=== PATIENT | male | born 1950 | race Caucasian/White ===

== ENCOUNTER 2025-06-03 17:29 | Emergency (ER) | payer MEDICARE, SELFPAY ==
[2025-06-03] VITALS (57 sets, daily range): BP systolic 86–129; BP diastolic 31–65; PULSE 52–68; RESP 16; TEMP 36.3; O2SAT 70–99; BMI 42.1
--- NOTE | 2025-06-03 17:35 | ECG_ITS ---
[facility] Test Date: 2025-06-03 Pat Name: LOLLY KNIGHT Department: Room: - Gender: Male Caul Fat Puller: : 1950 Requested By: [id number] Order Number: [id number] Reading MD: BG ADKINS M.D. Measurements Intervals [place] Rate: 60 P: 51 [place]: 178 QRS: 50 QRSD: 102 T: 65 QT: 408 QTc: 410 Interpretive Statements 1100 Sinus rhythm 4068 Nonspecific Twave abnormality 9130 borderline ECG No previous ECG available for comparison Electronically Signed On 06-03-2025 19:27:19 EDT by BG ADKINS M.D.
--- NOTE | 2025-06-03 17:35 | XR_ITS ---
The [place] [id number] Patient Name: LOLLY KNIGHT MRN: [id number] date: 1950 Sex: M Assigned Patient Location: ED.MAIN Current Patient Location: ED.MAIN Accession/Order Number: [id number] Exam Date: 06/03/2025 18:32 Report Date: 06/03/2025 18:49 At the request of: NANCY IBARRA MD Procedure: XR chest 1V Single view chest: CLINICAL HISTORY: sob COMPARISON: None FINDINGS: Cardiomegaly with vascular congestion. No consolidation pneumothorax pleural effusion or free air. XR/XR chest 1V IMPRESSION: CHF FINDINGS. Impression dictated by: Jay Pacheco Jr., D.OIndigo 06/03/2025 6:49 PM Dictation Location: [place] [address] Electronically authenticated by: [id number] Y Date: 06/03/2025 18:49
--- OUTSIDE RECORDS SUMMARY | 2025-06-03 17:39 | XMS_ITS | Patient Health Record ---
Author Organization [facility] in [place] Address [address] [place] [address] Support Name Relationship Address Phone Ifeanyi Beach Guarantor Unknown [phone] Reason For Referral No Information Plan Of Treatment No Information
--- OUTSIDE RECORDS SUMMARY | 2025-06-03 17:39 | XMS_ITS | Clinical Summary ---
Author Organization [facility] tem Address [id number] [place] [address] Care Team Providers Care Photograph Inspector Name Role Phone Unavailable Primary Care Provider Unavailabl e Social History Tobacco Use Types Packs/Day Years Used Date Smoking Tobacco: Never Assessed Childcare Answer Date Recorded Childcare Unknown 02/08/2019 Employment Answer Date Recorded Employment Unknown 02/08/2019 Sex and Gender Information Value Date Recorded Sex Assigned at Not on file Legal Sex Male 12:26 PM EST Gender Identity Not on file Sexual Orientation Not on file Plan of Treatment Not on file Medical Devices Not on file
--- OUTSIDE RECORDS SUMMARY | 2025-06-03 17:39 | XMS_ITS | Encounter Summary ---
Author Organization [facility] Address [address] [place] [address] Phone Care Team Providers Care Water Reclamation Systems Operator Name Role Phone Kulwinder Grant Primary Care Provider [phone] Encounter Details Date Type Department Care Team (Late st Contact Info) Description 12/11/2024 Scanned Document [facility] [address] [place] [phone] Scanning, Generic Provider Social History Tobacco Use Types Packs/Day Years Used Date Smoking Tobacco: Former Cigarettes Q uit: 2020 Smokeless Tobacco: Never Alcohol Use Standard Drinks/Week Comments Never 0 (1 standard drink = 0.6 oz pur e alcohol) Sex and Gender Information Value Date Recorded Sex Assigned at Not on file Legal Sex Male 11:02 AM EST Gender Identity Not on file Sexual Orientation Not on file COVID-19 Exposure Response Date Recorded In the last 10 days, have yo u been in contact with someone who was confirmed or suspected to have Coronavirus/COVID-19? No / Unsure 12/14/2024 1:51 PM EDT documented as of this encounter Functional Status * BP Answer Date of Assessment Author 104/60 12/14/2024 2:07 PM EDT Piedad Ramos, MANOLO * Pulse Answer Date of Assessment Author 72 12/14/2024 2:07 PM EDT Piedad Ramos, RN * Communicable Disease Screening Question Answer Date of Assessment Author Do you have any of the following new or worsening symptoms? None of these 12/14/2024 1:51 PM EDT Ludmila Cooper documented as of this encounter Plan of Treatment Upcoming Encounters Date Type Department Care Team (Late st Contact Info) Description 09/19/2025 2:30 PM EST Office Visit [facility] 703 [facility] [address] [place] [phone] Curits Lang MD 703 [facility] 2, [facility] [address] [place] [address] documented as of this encounter Visit Diagnoses Not on filedocumented in this encounter Additional Health Concerns Assessment Noted Time A fall risk assessment has been complete d for the patient 03/15/2024 1:28 PM EDT documented as of this encounter Care Teams Water Reclamation Systems Operator Relationship Specialty Start Date End Date Kulwinder Grant DO PCP - General Family Medicine 03/15/24 documented as of this encounter
--- OUTSIDE RECORDS SUMMARY | 2025-06-03 17:39 | XMS_ITS | Encounter Summary ---
Author Organization [facility] Address [address] [place] [address] Phone Care Team Providers Care Information Resources Director Name Role Phone Kulwinder Grant DO Primary Care Provider [phone] Encounter Details Date Type Department Care Team (Late st Contact Info) Description 08/03/[address] [facility] [address] [place] [phone] Scanning, Generic Provider Social History Tobacco Use [...] on file Sexual Orientation Not on file documented as of this encounter Plan of Treatment Upcoming Encounters Date Type Department Care Team (Late st Contact Info) Description 09/19/2025 2:30 PM EST Office Visit [facility] [address] [address] Curtis Lang MD 703 [facility] 2, [address] [place], [place] [phone] documented as of this encounter Procedures Procedure Name Priority Date/Time Associated Diagnosis Comments OUTSIDE IMAGING SCAN 08/03/2024 documented in this encounter Results * OUTSIDE IMAGING SCAN (08/03/2024) Anatomical Region Laterality Modality Other Narrative 08/03/2024 Ordered by an unspecified provider. us Generic Provider Scanning OUTSIDE SCAN Final Result documented in this encounter Visit Diagnoses Not on filedocumented in this encounter Additional Health Concerns Assessment Noted Time A fall risk assessment has been complete d for the patient 03/15/2024 1:28 PM EDT documented as of this encounter Care Teams Information Resources Director Relationship Specialty Start Date End Date Kulwinder Grant DO PCP - General Family Medicine 03/15/24 documented as of this encounter
--- OUTSIDE RECORDS SUMMARY | 2025-06-03 17:39 | XMS_ITS | Encounter Summary ---
Author Organization [facility] Address [address] [place] [address] Phone Care Team Providers Care Tray Packer Name Role Phone Kulwinder Grant DO Primary Care Provider [phone] Encounter Details Date Type Department Care Team (Late st Contact Info) Description 06/05/2024 Scanned Document [facility] [address] [place] [phone] Scanning, Generic Provider Social History Tobacco Use [...] Description 09/19/2025 2:30 PM EST Office Visit [facility] 703 [facility] [address] [place] [address] Curtis Lang MD 703 [facility] 2, [address] [place], [place] [phone] documented as of this encounter Visit Diagnoses Not on filedocumented in this encounter Additional Health Concerns Assessment Noted Time A fall risk assessment has been complete d for the patient 03/15/2024 1:28 PM EDT documented as of this encounter Care Teams Tray Packer Relationship Specialty Start Date End Date Kulwinder Grant DO PCP - General Family Medicine 03/15/24 documented as of this encounter
--- OUTSIDE RECORDS SUMMARY | 2025-06-03 17:40 | XMS_ITS | Encounter Summary ---
Author Organization [facility] Address [address] [place] [address] Phone Care Team Providers Care Quiller Hand Name Role Phone Kulwinder Grant DO Primary Care Provider [phone] Kulwinder Grant DO Primary Care Provider [phone] Encounter Details Date Type Department Care Team (Late st Contact Info) Description 05/12/2023 Scanned Document [facility] [address] [place] [address] Scanning, Generic Provider Social History Tobacco Use Types Packs/Day Years Used Date Smoking Tobacco: Never Assessed Sex and Gender Information Value Date Recorded Sex Assigned at Not on file Legal Sex Male 11:02 AM EST Gender Identity Not on file Sexual Orientation Not on file documented as of this encounter Plan of Treatment Upcoming Encounters Date Type Department Care Team (Late st Contact Info) Description 09/19/2025 2:30 PM EST Office Visit [facility] [address] [address] Curtis Lang MD 703 [facility] 2, [address] [place], [place] [phone] documented as of this encounter Visit Diagnoses Not on filedocumented in this encounter Care Teams Quiller Hand Relationship Specialty Start Date End Date Kulwinder Grant DO PCP - General 05/17/19 03/14/24 Kulwinder Grant DO PCP - General Family Medicine 03/15/24 documented as of this encounter
--- OUTSIDE RECORDS SUMMARY | 2025-06-03 17:40 | XMS_ITS | Encounter Summary ---
Author Organization [facility] Address [address] [place] [address] Phone Care Team Providers Care Skein Yarn Dyer Helper Name Role Phone Kulwinder Grant DO Primary Care Provider [phone] Kulwinder Grant DO Primary Care Provider [phone] Encounter Details Date Type Department Care Team (Late st Contact Info) Description 08/02/2020 Orders Only [facility] [address] [place] [address] Conversion, Onbase Social History Tobacco Use Types Packs/Day Years [...] Description 09/19/2025 2:30 PM EST Office Visit [facility] [address] [phone] Curtis Lang MD 703 [facility] 2, [address] [phone] Scheduled Orders Name Type Priority Associated Diagnoses Orde r Schedule OUTSIDE LAB SCAN Lab Ordered: 08/02/2020 documented as of this encounter Visit Diagnoses Not on filedocumented in this encounter Care Teams Skein Yarn Dyer Helper Relationship Specialty Start Date End Date Kulwinder Grant DO PCP - General 05/17/19 03/14/24 Kulwinder Grant DO PCP - General Family Medicine 03/15/24 documented as of this encounter
--- OUTSIDE RECORDS SUMMARY | 2025-06-03 17:40 | XMS_ITS | Encounter Summary ---
Author Organization [facility] Address [address] [place] [address] Phone Care Team Providers Care Sales Account Coordinator Name Role Phone Kulwinder Grant DO Primary Care Provider [phone] Kulwinder Grant DO Primary Care Provider [phone] Encounter Details Date Type Department Care Team (Late st Contact Info) Description 07/06/2019 Orders Only [facility] [address] [place] [address] Conversion, Onbase Social History Tobacco Use Types [...] Description 09/19/2025 2:30 PM EST Office Visit [facility] [address] [phone] Curtis Lang MD 703 [facility] 2, [address] [phone] Scheduled Orders Name Type Priority Associated Diagnoses Orde r Schedule OUTSIDE LAB SCAN Lab Ordered: 07/06/2019 documented as of this encounter Visit Diagnoses Not on filedocumented in this encounter Care Teams Sales Account Coordinator Relationship Specialty Start Date End Date Kulwinder Grant DO PCP - General 05/17/19 03/14/24 Kulwinder Grant DO PCP - General Family Medicine 03/15/24 documented as of this encounter
--- OUTSIDE RECORDS SUMMARY | 2025-06-03 17:40 | XMS_ITS | Encounter Summary ---
Author Organization [facility] Address [address] [place] [address] Phone Care Team Providers Care Teletype Or Varitype Keyboard Operator Name Role Phone Kulwinder Grant DO Primary Care Provider [phone] Kulwinder Grant DO Primary Care Provider [phone] Encounter Details Date Type Department Care Team (Late st Contact Info) Description 01/08/[address] [facility] [address] [place] [address] Conversion, Onbase Social History Tobacco Use Types [...] Description 09/19/2025 2:30 PM EST Office Visit [facility] [address] [phone] Curtis Lang MD 703 [facility] 2, [address] [place] [address] Scheduled Orders Name Type Priority Associated Diagnoses Orde r Schedule OUTSIDE LAB SCAN Lab Ordered: 01/08/2023 documented as of this encounter Visit Diagnoses Not on filedocumented in this encounter Care Teams Teletype Or Varitype Keyboard Operator Relationship Specialty Start Date End Date Kulwinder Grant DO PCP - General 05/17/19 03/14/24 Kulwinder Grant DO PCP - General Family Medicine 03/15/24 documented as of this encounter
--- OUTSIDE RECORDS SUMMARY | 2025-06-03 17:40 | XMS_ITS | Encounter Summary ---
Author Organization [facility] Address [address] [place] [address] Phone Care Team Providers Care Street Photographer Name Role Phone Kulwinder Grant DO Primary Care Provider [phone] Kulwinder Grant DO Primary Care Provider [phone] Encounter Details Date Type Department Care Team (Late st Contact Info) Description 03/12/2022 Orders Only [facility] [address] Virtual [place] [address] Conversion, Onbase Social History Tobacco Use Types [...] Description 09/19/2025 2:30 PM EST Office Visit [facility] [address] [phone] Curtis Lang MD [address] [facility] 2, [address] [place] [address] Scheduled Orders Name Type Priority Associated Diagnoses Orde r Schedule OUTSIDE LAB SCAN Lab Ordered: 03/12/2022 documented as of this encounter Visit Diagnoses Not on filedocumented in this encounter Care Teams Street Photographer Relationship Specialty Start Date End Date Kulwinder Grant DO PCP - General 05/17/19 03/14/24 Kulwinder Grant DO PCP - General Family Medicine 03/15/24 documented as of this encounter
--- OUTSIDE RECORDS SUMMARY | 2025-06-03 17:40 | XMS_ITS | Encounter Summary ---
Author Organization [facility] Address [address] [place] [address] Phone Care Team Providers Care Factory Laborer Name Role Phone Kulwinder Grant DO Primary Care Provider [phone] Kulwinder Grant DO Primary Care Provider [phone] Encounter Details Date Type Department Care Team (Late st Contact Info) Description 11/26/2020 Orders Only [facility] [address] [place] [address] Conversion, Onbase Social History Tobacco Use Types [...] Description 09/19/2025 2:30 PM EST Office Visit [facility] [address] [phone] Curtis Lang MD 703 [facility] 2, [address] [place] [address] Scheduled Orders Name Type Priority Associated Diagnoses Orde r Schedule OUTSIDE LAB SCAN Lab Ordered: 11/26/2020 documented as of this encounter Visit Diagnoses Not on filedocumented in this encounter Care Teams Factory Laborer Relationship Specialty Start Date End Date Kulwinder Grant DO PCP - General 05/17/19 03/14/24 Kulwinder Grant DO PCP - General Family Medicine 03/15/24 documented as of this encounter
--- OUTSIDE RECORDS SUMMARY | 2025-06-03 17:40 | XMS_ITS | Encounter Summary ---
Author Organization [facility] Address [address] [place] [address] Phone Care Team Providers Care Market Research Worker Name Role Phone Kulwinder Grant DO Primary Care Provider [phone] Kulwinder Grant DO Primary Care Provider [phone] Encounter Details Date Type Department Care Team (Late st Contact Info) Description 10/21/2022 Orders Only [facility] [address] [place] [address] Conversion, Onbase Social History Tobacco Use Types [...] Description 09/19/2025 2:30 PM EST Office Visit [facility] [address] [phone] Curtis Lang MD 703 [facility] 2, [address] [place] [address] Scheduled Orders Name Type Priority Associated Diagnoses Orde r Schedule SLEEP STUDY ORDER - ONBASE SCAN Sleep Center Ordered: 023 documented as of this encounter Visit Diagnoses Not on filedocumented in this encounter Care Teams Market Research Worker Relationship Specialty Start Date End Date Kulwinder Grant DO PCP - General 05/17/19 03/14/24 Kulwinder Grant DO PCP - General Family Medicine 03/15/24 documented as of this encounter
--- OUTSIDE RECORDS SUMMARY | 2025-06-03 17:40 | XMS_ITS | Encounter Summary ---
Author Organization [facility] Address [address] [place] [address] Phone Care Team Providers Care Supervisor Major Appliance Assembly Name Role Phone Kulwinder Grant DO Primary Care Provider [phone] Encounter Details Date Type Department Care Team (Late st Contact Info) Description 05/04/2024 Scanned Document [facility] [address] [place] [phone] Scanning, Generic Provider Social History Tobacco Use [...] Description 09/19/2025 2:30 PM EST Office Visit [facility] [address] [address] Curtis Lang MD 703 [facility] 2, [address] [place], [place] [phone] documented as of this encounter Procedures Procedure Name Priority Date/Time Associated Diagnosis Comments OUTSIDE IMAGING SCAN 05/04/2024 documented in this encounter Results * OUTSIDE IMAGING SCAN (05/04/2024) Anatomical Region Laterality Modality Other Narrative 05/04/2024 Ordered by an unspecified provider. us Generic Provider Scanning OUTSIDE SCAN Final Result documented in this encounter Visit Diagnoses Not on filedocumented in this encounter Additional Health Concerns Assessment Noted Time A fall risk assessment has been complete d for the patient 03/15/2024 1:28 PM EDT documented as of this encounter Care Teams Supervisor Major Appliance Assembly Relationship Specialty Start Date End Date Kulwinder Grant DO PCP - General Family Medicine 03/15/24 documented as of this encounter
--- OUTSIDE RECORDS SUMMARY | 2025-06-03 17:40 | XMS_ITS | Encounter Summary ---
Author Organization [facility] Address [address] [place] [address] Phone Care Team Providers Care Fence Erector Name Role Phone Kulwinder Grant DO Primary Care Provider [phone] Kulwinder Grant DO Primary Care Provider [phone] Encounter Details Date Type Department Care Team (Late st Contact Info) Description 09/18/2021 Orders Only [facility] [address] [place] [address] Conversion, Onbase Social History Tobacco Use Types [...] 2:30 PM EST Office Visit [facility] [address] [phone] Curtis Lang MD 703 [facility] 2, [address] [place] [address] Scheduled Orders Name Type Priority Associated Diagnoses Orde r Schedule OUTSIDE LAB SCAN Lab Ordered: 09/18/2021 documented as of this encounter Visit Diagnoses Not on filedocumented in this encounter Care Teams Fence Erector Relationship Specialty Start Date End Date Kulwinder Grant DO PCP - General 05/17/19 03/14/24 Kulwinder Grant DO PCP - General Family Medicine 03/15/24 documented as of this encounter
--- OUTSIDE RECORDS SUMMARY | 2025-06-03 17:40 | XMS_ITS | Encounter Summary ---
Author Organization [facility] Address [address] [place] [address] Phone Care Team Providers Care Department Traffic Freight Router Name Role Phone Kulwinder Grant DO Primary Care Provider [phone] Encounter Details Date Type Department Care Team (Late st Contact Info) Description 05/05/2024 Scanned Document [facility] [address] [place] [phone] Scanning, Generic Provider Social History Tobacco Use [...] Description 09/19/2025 2:30 PM EST Office Visit [facility] [address] [phone] Curtis Lang MD 703 [facility] 2, [address] [place] [address] Scheduled Orders Name Type Priority Associated Diagnoses Orde r Schedule Ultrasound- OnBase Scan Imaging O rdered: 05/05/2024 documented as of this encounter Procedures Procedure Name Priority Date/Time Associated Diagnosis Comments ECHOCARDIOGRAM 05/05/2024 documented in this encounter Results * Echocardiogram (05/05/2024) Narrative 05/05/2024 Ordered by an unspecified provider. us Generic Provider Scanning CV ECHO PROCEDURES Fin al Result documented in this encounter Visit Diagnoses Not on filedocumented in this encounter Additional Health Concerns Assessment Noted Time A fall risk assessment has been complete d for the patient 03/15/2024 1:28 PM EDT documented as of this encounter Care Teams Department Traffic Freight Router Relationship Specialty Start Date End Date Kulwinder Grant DO PCP - General Family Medicine 03/15/24 documented as of this encounter
--- OUTSIDE RECORDS SUMMARY | 2025-06-03 17:40 | XMS_ITS | Clinical Summary ---
Author Organization [facility] Address [address] [place] [address] Phone Care Team Providers Care Truck Rental Clerk Name Role Phone Kulwinder Grant Primary Care Provider [phone] Allergies No known active allergies Medications aspirin 81 mg EC tablet Take 1 tablet (81 mg) by mouth once daily. Active ezetimibe (Zetia) 10 mg tablet Take 1 tablet (10 mg) by mouth once daily. 2 Active tamsulosin (Flomax) 0.4 mg 24 hr capsule Take 1 capsule (0.4 mg) by mouth once daily. 1 Active atorvastatin (Lipitor) 40 mg tabletIndications:M ixed hyperlipidemia TAKE 1 TABLET BY MOUTH AT BEDTIME 90 tablet 3 4 Active triamterene-hydroch lorothiazid (Maxzide-25) 37.5-25 mg tablet Take 1 tablet by mouth once daily. Active SITagliptin phosphate (Januvia) 100 mg tablet Take 1 tablet (100 mg) by mouth once daily. Active levothyroxine (Synthroid, Levoxyl) 150 mcg tablet Take 1 tablet (150 mcg) by mouth early in the morning.. 5 Active lisinopril 10 mg tabletIndications:E ssential hypertension Take 1 tablet (10 mg) by mouth once daily. 90 tablet 3 5 01/27/20 26 Active carvedilol (Coreg) 12.5 mg tabletIndications:I schemic cardiomyopathy Take 1 tablet (12.5 mg) by mouth 2 times a day. 180 tablet 3 5 02/01/20 26 Active clopidogrel (Plavix) 75 mg tabletIndications:I schemic cardiomyopathy,Barbie nary artery disease involving [place] coronary artery of [place] heart without angina pectoris Take 1 tablet (75 mg) by mouth once daily. 90 tablet 3 5 03/07/20 26 Active Active Problems Problem Noted Date Diagnosed Date COPD (chronic obstructive pulmonary disease) (Mu lti) 07/07/2023 Coronary artery disease without angina pectoris 07/07/2023 Mixed hyperlipidemia 07/07/2023 Essential hypertension 07/07/2023 Ischemic cardiomyopathy 07/07/2023 Shortness of breath 07/07/2023 Sleep apnea 07/07/2023 Former smoker 07/07/2023 BMI 40.0-44.9, adult (Multi) 07/07/2023 Encounters Date Type Department Care Team Description 03/07/[address] [place] [address] Magdalena Marcos LPN Ischemic cardiomyopathy; Coronary artery disease involving [place] coronary artery of [place] heart without angina pectoris from Last 3 Months Immunizations Immunization Administration Dates Next Due Flu vaccine, quadrivalent, n o egg protein, age 6 month or greater (FLUCELVAX) 07/28/2021 Influenza, Seasonal, Quadriv alent, Adjuvanted 05/24/2023,07/03/2022 Influenza, Unspecified 05/24/2023,07/03/2022, Influenza, seasonal, injectable 05/30/2024,11/02 Influenza, trivalent, adjuvanted 07/05/2024 Moderna COVID-19 vaccine, bi valent, blue cap/tobar label *Check age/dose* 07/03/2022 RSV, 60 Years And Older (AREXVY) 05/24/2023 Family History Medical History Relation Name Comments No Known Problems Brother No Known Problems Father Heart disease Mother No Known Problems Sister Relation Name Status Comments Brother Father Mother Sister Social History Tobacco Use Types Packs/Day Years Used Date Smoking Tobacco: Former Cigarettes Q uit: 2020 Smokeless Tobacco: Never Tobacco Cessation:Counseling Given: Not Answered Alcohol Use Standard Drinks/Week Comments Never 0 (1 standard drink = 0.6 oz pur e alcohol) Sex and Gender Information Value Date Recorded Sex Assigned at Not on file Legal Sex Male 11:02 AM EST Gender Identity Not on file Sexual Orientation Not on file Last Filed Vital Signs Vital Sign Reading Time Taken Comments Blood Pressure 104/60 12/14/2024 2:07 PM EDT Pulse 72 12/14/2024 2:07 PM EDT Temperature - - Respiratory Rate - - Oxygen Saturation - - Inhaled Oxygen Concentration - - Weight 145 kg (319 lb) 12/14/2024 2:07 PM EDT Height 182.9 cm (6') 12/14/2024 2:07 PM EDT Body Mass Index 43.26 12/14/2024 2:07 PM EDT Plan of Treatment Upcoming Encounters Date Type Department Care Team (Late st Contact Info) Description 09/19/2025 2:30 PM EST Office Visit [facility] [address] [facility] [address] [place] [address] Curtis Lang MD [address] [facility] [address] [place] [address] Health Maintenance Due Date Last Done Comments CT Colonography 1950 Colonoscopy 1950 Colorectal Cancer Screening 1950 Creatinine Level 1950 FIT-DNA (Cologuard) 1950 FIT 1950 Lipid Panel 1950 Medicare Annual Wellness Visit (AWV) 1950 Potassium Level 1950 Sigmoidoscopy 1950 TSH Level 1950 MMR Vaccines (1 of 1 - Standard series) 1953 Hepatitis C Screening 1970 Pneumococcal Vaccine (1 of 2 - PCV) 1971 DTaP/Tdap/Td Vaccines (1 - Tdap) 1974 Zoster Vaccines (1 of 2) 2002 Abdominal Aortic Aneurysm (AAA) Screening 2017 COVID-19 Vaccine (3 - season) 2025 07/03/2022, 07/28/2021, 12/30/2020 Influenza Vaccine (#1) 2025 , 05/30/2024, 05/24/2023, Additional history exists Echocardiogram 05/05/2025 05/05/2024, 10/29, 05/17/2019, Additional history exists RSV High Risk: (Elderly (60+) or Population) Completed 05/24/2023 HIB Vaccines Aged Out No longer eligi ble based on patient's age to complete this topic HPV Vaccines Aged Out No longer eligi ble based on patient's age to complete this topic Hepatitis A Vaccines Aged Out No long er eligible based on patient's age to complete this topic Hepatitis B Vaccines Aged Out No long er eligible based on patient's age to complete this topic IPV Vaccines Aged Out No longer eligi ble based on patient's age to complete this topic Meningococcal Vaccine Aged Out No kaila que eligible based on patient's age to complete this topic Rotavirus Vaccines Aged Out No longer eligible based on patient's age to complete this topic Procedures Procedure Name Priority Date/Time Associated Diagnosis Comments ECHOCARDIOGRAM 05/05/2024 from Last 3 Months or Most Recently Relevant to Health Maintenance Results * Echocardiogram (05/05/2024) Narrative 05/05/2024 Ordered by an unspecified provider. us Generic Provider Scanning CV ECHO PROCEDURES Fin al Result from Last 3 Months or Most Recently Relevant to Health Maintenance Insurance [employer] [place]ARE [employer] [place] [employer] Care Teams Truck Rental Clerk Relationship Specialty Start Date End Date Kulwinder Grant DO PCP - General Family Medicine 03/15/24
--- OUTSIDE RECORDS SUMMARY | 2025-06-03 17:40 | XMS_ITS | Encounter Summary ---
Author Organization [facility] Address [address] [place] [address] Phone Care Team Providers Care Sales Trader Name Role Phone Kulwinder Grant DO Primary Care Provider [phone] Kulwinder Grant DO Primary Care Provider [phone] Encounter Details Date Type Department Care Team (Late st Contact Info) Description 01/04/2024 Scanned Document [facility] [address] [place] [address] Scanning, Generic Provider Social History [...] Description 09/19/2025 2:30 PM EST Office Visit [facility] [address] [facility] [address] [place] [address] Curtis Lang MD [address] [facility] [address] [place] [address] documented as of this encounter Visit Diagnoses Not on filedocumented in this encounter Additional Health Concerns Assessment Noted Time A fall risk assessment has been complete d for the patient 07/08/2023 2:11 PM EST documented as of this encounter Care Teams Sales Trader Relationship Specialty Start Date End Date Kulwinder Grant DO PCP - General 05/17/19 03/14/24 Kulwinder Grant DO PCP - General Family Medicine 03/15/24 documented as of this encounter
--- OUTSIDE RECORDS SUMMARY | 2025-06-03 17:40 | XMS_ITS | Encounter Summary ---
Author Organization [facility] Address [address] [place] [address] Phone Care Team Providers Care Agronomy Teacher Name Role Phone Kulwinder Grant DO Primary Care Provider [phone] Kulwinder Grant DO Primary Care Provider [phone] Encounter Details Date Type Department Care Team (Late st Contact Info) Description 11/28/2020 Orders Only [facility] [address] [place] [address] Conversion, Onbase Social History Tobacco Use Types [...] Description 09/19/2025 2:30 PM EST Office Visit [facility] [address] [phone] Curtis Lang MD [address] [facility] [address] [place] [address] Scheduled Orders Name Type Priority Associated Diagnoses Orde r Schedule OUTSIDE LAB SCAN Lab Ordered: 11/28/2020 documented as of this encounter Visit Diagnoses Not on filedocumented in this encounter Care Teams Agronomy Teacher Relationship Specialty Start Date End Date Kulwinder Grant DO PCP - General 05/17/19 03/14/24 Kulwinder Grant DO PCP - General Family Medicine 03/15/24 documented as of this encounter
--- OUTSIDE RECORDS SUMMARY | 2025-06-03 17:40 | XMS_ITS | Encounter Summary ---
Author Organization [facility] Address [address] [place] [address] Phone Care Team Providers Care Flight Engineer Name Role Phone Kulwinder Grant DO Primary Care Provider [phone] Kulwinder Grant DO Primary Care Provider [phone] Encounter Details Date Type Department Care Team (Late st Contact Info) Description 12/01/2020 Orders Only [facility] [address] [place] [address] Conversion, Onbase Social History Tobacco Use Types [...] Office Visit [facility] [address] [phone] Curtis Lang MD [address] [facility] [address] [place] [address] Scheduled Orders Name Type Priority Associated Diagnoses Orde r Schedule OUTSIDE LAB SCAN Lab Ordered: 12/01/2020 documented as of this encounter Visit Diagnoses Not on filedocumented in this encounter Care Teams Flight Engineer Relationship Specialty Start Date End Date Kulwinder Grant DO PCP - General 05/17/19 03/14/24 Kulwinder Grant DO PCP - General Family Medicine 03/15/24 documented as of this encounter
--- OUTSIDE RECORDS SUMMARY | 2025-06-03 17:40 | XMS_ITS | Encounter Summary ---
Author Organization [facility] Address [address] [place] [address] Phone Care Team Providers Care Editing Intern Name Role Phone Kulwinder Grant DO Primary Care Provider [phone] Kulwinder Grant DO Primary Care Provider [phone] Encounter Details Date Type Department Care Team (Late st Contact Info) Description 04/15/2022 Orders Only [facility] [address] [place] [address] Conversion, Onbase Social History Tobacco Use Types [...] Description 09/19/2025 2:30 PM EST Office Visit [facility] [address] [phone] Curtis Lang MD [address] [facility] [address] [place] [address] Scheduled Orders Name Type Priority Associated Diagnoses Orde r Schedule OUTSIDE LAB SCAN Lab Ordered: 04/15/2022 documented as of this encounter Visit Diagnoses Not on filedocumented in this encounter Care Teams Editing Intern Relationship Specialty Start Date End Date Kuwlinder Grant DO PCP - General 05/17/19 03/14/24 Kulwinder Grant DO PCP - General Family Medicine 03/15/24 documented as of this encounter
[2025-06-03 17:56] LABS: Allen Test POSITIVE (POSITIVE); HCO3 ABG 31.0 mmol/L (22.0-26.0); Oxygen Saturation ABG 99.1 %; PO2 ABG 139.0 mmHg (80.0-100.0)
[2025-06-03 17:57] LABS: Liters per Minute 15; O2 Mode NRBM; Puncture Site RR
[2025-06-03 17:58] LABS: ABG PCO2 88.2 mmHg (35.0-45.0)
--- NOTE | 2025-06-03 17:58 | CT_ITS ---
[facility] [place] [id number] Patient Name: LOLLY KNIGHT MRN: [id number] date: 1950 Sex: M Assigned Patient Location: ED.MAIN Current Patient Location: ED.MAIN Accession/Order Number: [id number] Exam Date: 06/03/2025 18:18 Report Date: 06/03/2025 18:31 At the request of: NANCY IBARRA MD Procedure: CT stroke head/brain wo con CT BRAIN WITHOUT CONTRAST: CLINICAL HISTORY: Altered mental status. Slurred speech starting yesterday. COMPARISON: None TECHNIQUE: Contiguous axial unenhanced images were obtained through the brain. This CT exam was performed using one or more following dose reduction techniques: Automated exposure control, adjustment of the mA and/or kV according to patient size, or use of iterative reconstruction technique. FINDINGS: There is no evidence of midline shift, intra or extra-axial fluid collection, or hemorrhage. Cortical atrophy with chronic microvascular ischemic changes. Lacunar infarct left basal ganglia. There is questionable loss of tobar/white matter differentiation involving the left temporal lobe best seen on series 3 image 35. Posterior fossa appears unremarkable. Visualized intraorbital contents demonstrate no acute findings. Mild ethmoid and left maxillary sinus disease. The surrounding soft tissues are normal. CT/CT stroke head/brain wo con IMPRESSION: QUESTIONABLE SUBACUTE INFARCT INVOLVING THE LEFT TEMPORAL LOBE VERSUS ARTIFACT. THIS CAN BE CONFIRMED BY MRI. Impression dictated by: Jay Pacheco Jr., D.O. 06/03/2025 6:31 PM Dictation Location: [place] [address] Electronically authenticated by: [id number] Y Date: 06/03/2025 18:31
[2025-06-03 18:06] LABS: Hematocrit 42.1 % (42.0-54.0); Hemoglobin 12.6 g/dL (14.0-18.0); Immature Granulocytes Abs Auto 0.05 10^3/uL (0.00-0.03); Immature Granulocytes Pct Auto 0.4 % (0.0-0.5); Lymphocytes Absolute Auto 1.2 10^3/uL (1.2-3.8); Mean Corpuscular HGB Conc 29.9 g/dL (29.9-35.2); Mean Corpuscular Hemoglobin 31.1 pg (25.9-34.0); Mean Corpuscular Volume 104.0 fL (80.0-94.0); Platelet Count 136 10^3/uL (150-450); Red Blood Count 4.05 10^6/uL (4.70-6.10); White Blood Count 11.3 10^3/uL (4.0-11.0)
[2025-06-03 18:17] LABS: INR 1.03; Prothrombin Time 10.9 sec (9.0-11.6)
[2025-06-03 18:21] LABS: Lactate/Lactic Acid 0.4 mmol/L (0.4-2.0)
--- NOTE | 2025-06-03 18:26 | ED.AMS1 ---
HPI - Altered Mental Status General Chief Complaint: Altered Mental Status Stated Complaint: SLURRED SPEECH Time Seen by Provider: 06/03/25 17:35 Source: family Mode of arrival: ambulance Limitations: no limitations History of Present Illness HPI narrative: Brought to us by the family for altered mental status and slurred speech that they noticed since yesterday also associate with generalized weakness although the patient has been weak more in the right side where he had a old injury, the patient is a smoker he actually quit smoking few years ago but he went back to smoking just few weeks ago, the patient does have a cough no fever no chills no other concerns there is decreased intake, the patient had no chest pain no abdominal pain at any time Arrival the patient is generally weak and sleepy, no cough no chest pain no abdominal pain Nette first noted that the patient's speech was slurred was last night Related Data Home Medications ?Medication ?Instructions ?Recorded ?Confirmed atorvastatin 40 mg tablet mg 06/03/25 carvedilol 12.5 mg tablet mg 06/03/25 clopidogrel 75 mg tablet mg 06/03/25 ezetimibe 10 mg tablet mg 06/03/25 hydrochlorothiazide 25 mg tablet mg 06/03/25 levothyroxine 175 mcg tablet mcg 06/03/25 lisinopril 10 mg tablet mg 06/03/25 sitagliptin phosphate 100 mg mg 06/03/25 tablet (Januvia) tamsulosin 0.4 mg capsule mg PO 06/03/25 Allergies Allergy/AdvReac Type Severity Reaction Status Date / Time No Known Drug Allergies Allergy Verified 06/03/25 18:47 PFSH PFSH Social History Little interest or pleasure in doing things: not at all Feeling down, depressed, or hopeless: not at all Exam Narrative Exam Narrative: Nurses notes and vital signs reviewed and patient is hypoxic General: Weakness patient is sleepy he wakes up easily when calling his name Skin: Warm, dry, no pallor noted. No rash. Head: Normocephalic, atraumatic. Neck: Supple, non-tender. Cardiovascular: Regular Rate and Rhythm without murmur, gallop or rub. Respiratory: No accessory muscle use or respiratory distress. Lungs distant breathing sound bilaterally Back: No midline thoracic or lumbar vertebral tenderness. No CVA tenderness Musculoskeletal: normal ROM, no calf or popliteal tenderness, no lower extremity edema/swelling GI: Abdomen is soft, non-distended. Normal bowel sounds. No masses appreciated. No tenderness to palpation. No rebound, guarding, or rigidity noted. Neurological: A&O x4. No cranial nerve dysfunction observed. Bilateral lower extremity weakness in both sides mostly. Constitutional Vital Signs, click to edit/add: Last Vital Signs Pulse 56 L 06/03/25 18:40 Resp 17 06/03/25 18:40 BP 129/65 06/03/25 18:25 Pulse Ox 97 06/03/25 18:40 O2 Del Method Room Air 06/03/25 17:35 O2 Flow Rate 15 06/03/25 17:28 FiO2 50 06/03/25 18:00 Course Vital Signs Vital signs: Vital Signs Pulse Oximetry 70 L 06/03/25 17:28 Oxygen Delivery Method Nonrebreather 06/03/25 17:28 Oxygen Delivery Flow Rate 15 06/03/25 17:28 Pulse Rate 56 L 06/03/25 18:40 Respiratory Rate 17 06/03/25 18:40 Blood Pressure 129/65 06/03/25 18:25 Pulse Oximetry 97 06/03/25 18:40 Oxygen Delivery Method Room Air 06/03/25 17:35 Oxygen Delivery Flow Rate 15 06/03/25 17:28 Fraction of Inspired Oxygen 50 06/03/25 18:00 MDM - Altered Mental Status MDM Narrative Medical decision making narrative: EKG showing sinus rhythm with a heart rate of [address] elevation or depression Condition the patient obviously hypoxemic SpO2 was 80% in room air and he was started right away on BiPAP with a history of being COPD The patient was started on BiPAP 14/04 The patient also had a chest x-ray that pending look like possible CHF initially the IV fluids were started but it was stopped awaiting the BN pep The patient had an IV established in both upper extremities using ultrasound CBC shows a white blood cell of 11 chemistry is pending and the patient ABG is showing an obvious pH of 7.14 with a pCO2 that is elevated and pO2 that is low The patient is responding better on the BiPAP CT of the head obtained due to the history of weakness although the clinical exam showed that the patient have bilateral lower extremity weakness and generalized tiredness that could be secondary to CO2 retention Right now waiting to discuss the case with neurologist although the patient presentation mostly secondary to COPD ,case discussed with Dr Sutton Lab Data Labs: Lab Results 06/03/25 06/03/25 06/03/25 Range/Units 17:43 17:50 17:53 WBC 11.3 H (4.0-11.0) 10^3/uL RBC 4.05 L (4.70-6.10) 10^6/uL Hgb 12.6 L (14.0-18.0) g/dL Hct 42.1 (42.0-54.0) % MCV 104.0 H (80.0-94.0) fL MCH 31.1 (25.9-34.0) pg MCHC 29.9 (29.9-35.2) g/dL RDW 14.6 (11.0-15.0) % Plt Count 136 L (150-450) 10^3/uL MPV 11.4 (9.5-13.5) fL Neut % (Auto) 77.7 H (43.0-75.0) % Lymph % (Auto) 10.6 L (20.5-60.0) % [place] % (Auto) 8.7 (1.7-12.0) % Eos % (Auto) 2.2 (0.9-7.0) % Baso % (Auto) 0.4 (0.2-2.0) % Neut # (Auto) 8.8 H (1.4-6.5) 10^3/uL Lymph # (Auto) 1.2 (1.2-3.8) 10^3/uL [place] # (Auto) 1.0 H (0.3-0.8) 10^3/uL Eos # (Auto) 0.3 (0.0-0.7) 10^3/uL Baso # (Auto) 0.0 (0.0-0.1) 10^3/uL Abs Immat Gran (auto) 0.05 H (0.00-0.03) 10^3/uL Imm/Tot Granulo (auto) 0.4 (0.0-0.5) % PT 10.9 (9.0-11.6) sec INR 1.03 Puncture Site Rr ABG pH 7.154 L* (7.350-7.450) ABG pCO2 88.2 H* (35.0-45.0) mmHg ABG pO2 139.0 H (80.0-100.0) mmHg ABG HCO3 31.0 H (22.0-26.0) mmol/L ABG O2 Saturation 99.1 % ABG Base Excess 2.2 H (-2.0-2.0) mmol/L Johan Test Positive (POSITIVE) O2 Liters/Min 15 Sodium 145 (136-145) mmol/L Potassium 4.4 (3.5-5.1) mmol/L Chloride 106 (98-107) mmol/L Carbon Dioxide 32.7 H (21.0-32.0) mmol/L Anion Gap 10.7 BUN 45.0 H (7.0-18.0) mg/dL Creatinine 2.63 H (0.70-1.30) mg/dL Est GFR ( Amer) 29 L (>=60 mL/min/1.73m^2) Est GFR (Non-Af Amer) 24 L (>=60 mL/min/1.73m^2) BUN/Creatinine Ratio 17.1 Glucose 99 (74-106) mg/dL Lactate 0.4 (0.4-2.0) mmol/L Calcium 8.6 (8.5-10.1) mg/dL Magnesium 2.4 (1.8-2.4) mg/dL Total Bilirubin 0.4 (0.2-1.0) mg/dL AST 13 L (15-37) U/L ALT 11 L (16-63) U/L Alkaline Phosphatase 82 (46-116) U/L Troponin I High Sens 69.0 (4.0-76.1) pg/mL Total Protein 7.6 (6.4-8.2) g/dL Albumin 3.7 (3.4-5.0) g/dL Globulin 3.9 g/dL Albumin/Globulin Ratio 0.9 POC Glucose 91 (74-106) mg/dL Discharge Plan Discharge Patient Disposition: Still a Patient
[2025-06-03 18:27] LABS: Alanine Aminotransferase 11 U/L (16-63); Albumin Globulin Ratio 0.9; Albumin Level 3.7 g/dL (3.4-5.0); Alkaline Phosphatase 82 U/L (46-116); Anion Gap 10.7; Aspartate Amino Transferase 13 U/L (15-37); Blood Urea Nitrogen 45.0 mg/dL (7.0-18.0); Calcium 8.6 mg/dL (8.5-10.1); Carbon Dioxide 32.7 mmol/L (21.0-32.0); Chloride 106 mmol/L (98-107); Estimated GFR (African America 29 (>=60 mL/min/1.73m^2); Estimated GFR (Non-African Ame 24 (>=60 mL/min/1.73m^2); Globulin 3.9 g/dL; Glucose 99 mg/dL (74-106); Magnesium 2.4 mg/dL (1.8-2.4); Potassium 4.4 mmol/L (3.5-5.1); Sodium 145 mmol/L (136-145); Total Protein 7.6 g/dL (6.4-8.2)
[2025-06-03] MEDS: 0.9 % SODIUM CHLORIDE 1,000 ML 500 ML IV (18:45)
[2025-06-03] MEDS: METHYLPREDNISOLONE SOD SUCC PF 125 MG/2 ML VIAL IVP (19:11)
[2025-06-03 19:14] LABS: NT Pro B Type Natriuretic Pept 146.0 pg/mL (<=900.0)
[2025-06-03] MEDS: IPRATROPIUM/ALBUTEROL SULFATE 3 ML AMPUL.NEB IH (19:21)
[2025-06-03 19:47] LABS: Allen Test POSITIVE (POSITIVE); BIPAP Pressure 16/8; HCO3 ABG 30.4 mmol/L (22.0-26.0); O2 Mode BIPAP; Oxygen Saturation ABG 84.3 %; Puncture Site R RADIAL
[2025-06-03 19:48] LABS: ABG PCO2 91.6 mmHg (35.0-45.0); PO2 ABG 54.7 mmHg (80.0-100.0)
--- NOTE | 2025-06-03 20:15 | RESP.RT ---
RT attempted another ABG due to last sample being venous. RT poked patient twice and was unable to obtain another sample. Dr. Hill notified.
--- NOTE | 2025-06-03 20:23 | ED_ITS ---
HPI HPI - General Adult General Chief complaint: Altered Mental Status Stated complaint: SLURRED SPEECH Time Seen by Provider: 06/03/25 17:35 Source: family Mode of arrival: ambulance Limitations: no limitations History of Present Illness HPI narrative: 74-year-old male presented to the emergency department and was initially seen by Dr. Ortiz and signed out to me after discussing the case with her thoroughly. Please see her full history and physical exam. Related Data Home Medications ?Medication ?Instructions ?Recorded ?Confirmed atorvastatin 40 mg tablet mg 06/03/25 carvedilol 12.5 mg tablet mg 06/03/25 clopidogrel 75 mg tablet mg 06/03/25 ezetimibe 10 mg tablet mg 06/03/25 hydrochlorothiazide 25 mg tablet mg 06/03/25 levothyroxine 175 mcg tablet mcg 06/03/25 lisinopril 10 mg tablet mg 06/03/25 sitagliptin phosphate 100 mg mg 06/03/25 tablet (Januvia) tamsulosin 0.4 mg capsule mg PO 06/03/25 Allergies Allergy/AdvReac Type Severity Reaction Status Date / Time No Known Drug Allergies Allergy Verified 06/03/25 18:47 PFSH PFSH Social History Little interest or pleasure in doing things: not at all Feeling down, depressed, or hopeless: not at all Exam Constitutional Vital Signs, click to edit/add: Last Vital Signs Temp 97.3 F L 06/03/25 20:17 Pulse 61 06/03/25 19:21 Resp 16 06/03/25 19:21 BP 129/65 06/03/25 18:25 Pulse Ox 95 06/03/25 19:21 O2 Del Method BIPAP 06/03/25 19:21 O2 Flow Rate 15 06/03/25 17:28 FiO2 50 06/03/25 19:21 Course Vital Signs Vital signs: Vital Signs Pulse Oximetry 70 L 06/03/25 17:28 Oxygen Delivery Method Nonrebreather 06/03/25 17:28 Oxygen Delivery Flow Rate 15 06/03/25 17:28 Temperature 97.3 F L 06/03/25 20:17 Pulse Rate 61 06/03/25 19:21 Respiratory Rate 16 06/03/25 19:21 Blood Pressure 129/65 06/03/25 18:25 Pulse Oximetry 95 06/03/25 19:21 Oxygen Delivery Method BIPAP 06/03/25 19:21 Oxygen Delivery Flow Rate 15 06/03/25 17:28 Fraction of Inspired Oxygen 50 06/03/25 19:21 Medical Decision Making MDM Narrative Medical decision making narrative: The patient presented with respiratory failure and was placed on BiPAP. His initial CO2 was 88 and his initial O2 sat was 80%. Subsequently his O2 sat has greatly improved and he is mentating much better. He is shaking his head yes and no appropriately to all questions and is recognizing his family. We attempted to obtain a second blood gas but were unsuccessful and what is listed in the laboratory section as an arterial blood gas is actually a venous blood gas. The patient was given IV steroid and aerosol treatment. Chest x-ray was consistent with CHF per radiologist but his BNP is not elevated. Dr. Ortiz had spoken to the stroke team at [facility] because of an abnormal CT of the brain and they recommended admission with MRI tomorrow. The patient was also given IV Lasix. Case discussed with Dr. Berkowitz and we have agreed the patient will be transferred to [facility]. The patient is stable and family is agreeable for transfer. I have spoken to Dr. Diego who accepts the patient. Lab Data Lab results reviewed: Yes I reviewed the patient's lab results Labs: Lab Results 06/03/25 06/03/25 06/03/25 Range/Units 17:43 17:50 17:53 WBC 11.3 H (4.0-11.0) 10^3/uL RBC 4.05 L (4.70-6.10) 10^6/uL Hgb 12.6 L (14.0-18.0) g/dL Hct 42.1 (42.0-54.0) % MCV 104.0 H (80.0-94.0) fL MCH 31.1 (25.9-34.0) pg MCHC 29.9 (29.9-35.2) g/dL RDW 14.6 (11.0-15.0) % Plt Count 136 L (150-450) 10^3/uL MPV 11.4 (9.5-13.5) fL Neut % (Auto) 77.7 H (43.0-75.0) % Lymph % (Auto) 10.6 L (20.5-60.0) % [place] % (Auto) 8.7 (1.7-12.0) % Eos % (Auto) 2.2 (0.9-7.0) % Baso % (Auto) 0.4 (0.2-2.0) % Neut # (Auto) 8.8 H (1.4-6.5) 10^3/uL Lymph # (Auto) 1.2 (1.2-3.8) 10^3/uL [place] # (Auto) 1.0 H (0.3-0.8) 10^3/uL Eos # (Auto) 0.3 (0.0-0.7) 10^3/uL Baso # (Auto) 0.0 (0.0-0.1) 10^3/uL Abs Immat Gran (auto) 0.05 H (0.00-0.03) 10^3/uL Imm/Tot Granulo (auto) 0.4 (0.0-0.5) % PT 10.9 (9.0-11.6) sec INR 1.03 Puncture Site Rr ABG pH 7.154 L* (7.350-7.450) ABG pCO2 88.2 H* (35.0-45.0) mmHg ABG pO2 139.0 H (80.0-100.0) mmHg ABG HCO3 31.0 H (22.0-26.0) mmol/L ABG O2 Saturation 99.1 % ABG Base Excess 2.2 H (-2.0-2.0) mmol/L Johan Test Positive (POSITIVE) O2 Liters/Min 15 FiO2 % BiPAP Sodium 145 (136-145) mmol/L Potassium 4.4 (3.5-5.1) mmol/L Chloride 106 (98-107) mmol/L Carbon Dioxide 32.7 H (21.0-32.0) mmol/L Anion Gap 10.7 BUN 45.0 H (7.0-18.0) mg/dL Creatinine 2.63 H (0.70-1.30) mg/dL Est GFR ( Amer) 29 L (>=60 mL/min/1.73m^2) Est GFR (Non-Af Amer) 24 L (>=60 mL/min/1.73m^2) BUN/Creatinine Ratio 17.1 Glucose 99 (74-106) mg/dL Lactate 0.4 (0.4-2.0) mmol/L Calcium 8.6 (8.5-10.1) mg/dL Magnesium 2.4 (1.8-2.4) mg/dL Total Bilirubin 0.4 (0.2-1.0) mg/dL AST 13 L (15-37) U/L ALT 11 L (16-63) U/L Alkaline Phosphatase 82 (46-116) U/L Troponin I High Sens 69.0 (4.0-76.1) pg/mL NT-Pro-B Natriuret Pep 146.0 (<=900.0) pg/mL Total Protein 7.6 (6.4-8.2) g/dL Albumin 3.7 (3.4-5.0) g/dL Globulin 3.9 g/dL Albumin/Globulin Ratio 0.9 POC Glucose 91 (74-106) mg/dL 06/03/25 Range/Units 19:32 WBC (4.0-11.0) 10^3/uL RBC (4.70-6.10) 10^6/uL Hgb (14.0-18.0) g/dL Hct (42.0-54.0) % MCV (80.0-94.0) fL MCH (25.9-34.0) pg MCHC (29.9-35.2) g/dL RDW (11.0-15.0) % Plt Count (150-450) 10^3/uL MPV (9.5-13.5) fL Neut % (Auto) (43.0-75.0) % Lymph % (Auto) (20.5-60.0) % [place] % (Auto) (1.7-12.0) % Eos % (Auto) (0.9-7.0) % Baso % (Auto) (0.2-2.0) % Neut # (Auto) (1.4-6.5) 10^3/uL Lymph # (Auto) (1.2-3.8) 10^3/uL [place] # (Auto) (0.3-0.8) 10^3/uL Eos # (Auto) (0.0-0.7) 10^3/uL Baso # (Auto) (0.0-0.1) 10^3/uL Abs Immat Gran (auto) (0.00-0.03) 10^3/uL Imm/Tot Granulo (auto) (0.0-0.5) % PT (9.0-11.6) sec INR Puncture Site R radial ABG pH 7.130 L* (7.350-7.450) ABG pCO2 91.6 H* (35.0-45.0) mmHg ABG pO2 54.7 L* (80.0-100.0) mmHg ABG HCO3 30.4 H (22.0-26.0) mmol/L ABG O2 Saturation 84.3 % ABG Base Excess 1.2 (-2.0-2.0) mmol/L Johan Test Positive (POSITIVE) O2 Liters/Min FiO2 50 % BiPAP 16/8 Sodium (136-145) mmol/L Potassium (3.5-5.1) mmol/L Chloride (98-107) mmol/L Carbon Dioxide (21.0-32.0) mmol/L Anion Gap BUN (7.0-18.0) mg/dL Creatinine (0.70-1.30) mg/dL Est GFR ( Amer) (>=60 mL/min/1.73m^2) Est GFR (Non-Af Amer) (>=60 mL/min/1.73m^2) BUN/Creatinine Ratio Glucose (74-106) mg/dL Lactate (0.4-2.0) mmol/L Calcium (8.5-10.1) mg/dL Magnesium (1.8-2.4) mg/dL Total Bilirubin (0.2-1.0) mg/dL AST (15-37) U/L ALT (16-63) U/L Alkaline Phosphatase (46-116) U/L Troponin I High Sens (4.0-76.1) pg/mL NT-Pro-B Natriuret Pep (<=900.0) pg/mL Total Protein (6.4-8.2) g/dL Albumin (3.4-5.0) g/dL Globulin g/dL Albumin/Globulin Ratio POC Glucose (74-106) mg/dL Imaging Data Chest x-ray: Radiologist's impression: ITS Impressions Chest X-Ray 06/03/25 17:35 IMPRESSION: CHF FINDINGS. Impression dictated by: Jay Pacheco Jr., D.O. 06/03/2025 6:49 PM Dictation Location: [employer] [facility] Electronically authenticated by: [id number] Y Date: 06/03/2025 18:[address] 06/03/25 17:58 IMPRESSION: QUESTIONABLE SUBACUTE INFARCT INVOLVING THE LEFT TEMPORAL LOBE VERSUS ARTIFACT. THIS CAN BE CONFIRMED BY MRI. Impression dictated by: Jay Pacheco Jr., D.O. 06/03/2025 6:31 PM Dictation Location: [id number] Electronically authenticated by: [id number] Y Date: 06/03/2025 18:31 Critical Care Time Critical Care Time Critical Care Time: Yes Total Critical Care Time: 40 Attestation: Due to the high probability of sudden and clinically significant deterioration in the patient's condition he/she required the highest level of my preparedness to intervene urgently I provided critical care time including documentation time, medication orders and management, reevaluation, vital sign assessment, ordering and reviewing of lab tests, ordering and reviewing of x-ray studies, and admission orders. Aggregate critical care time is 40 minutes including only time during which I was engaged in work directly related to his/her care and did not include time spent treating other patients simultaneously. Discharge Plan Discharge Chief Complaint: Altered Mental Status Clinical Impression: Altered mental status, Respiratory acidosis, Congestive heart failure, COPD exacerbation, Respiratory failure with hypoxia and hypercapnia Patient Disposition: [facility] Time of Disposition Decision: 20:22 Discharge Location: [facility] Condition: Fair Mode of Transportation: EMS
[2025-06-03] MEDS: FUROSEMIDE 20 MG/2 ML VIAL IVP (22:05)
[2025-06-04] VITALS (25 sets, daily range): BP systolic 88–110; BP diastolic 48–61; PULSE 55–64; O2SAT 93–98
== END 2025-06-04 03:20 | disposition short-term general hospital (02) ==
PROVIDERS: Emergency Medicine; Emergency Provider Emergency Medicine; PCP Family Medicine
DX: J96.92 Respiratory failure, unspecified with hypercapnia (principal); R41.82 Altered mental status, unspecified; J96.91 Respiratory failure, unspecified with hypoxia; E87.29 Other acidosis; I50.9 Heart failure, unspecified; J44.1 Chronic obstructive pulmonary disease with (acute) exacerbation; F17.200 Nicotine dependence, unspecified, uncomplicated
CPT/HCPCS: 36415; 36600; 51702; 70450; 71045; 80053; 82805; 83605; 83735; 83880; 84484; 85025; 85610; 87040; 93005; 94640; 94660; 96361; 96374; 96375; 99285; J1938; J2919